=== PATIENT | male | born 1960 | race African-American/Black ===

== ENCOUNTER 2025-02-25 12:23 | Emergency (ER) | payer MEDICARE ==
[~2025-02-25] VITALS: Ht 180.3 cm; Wt 82.0 kg
[2025-02-25 12:29] VITALS: O2SAT 99
[2025-02-25] MEDS ORDERED: AMOX-494 MT (13:45)
[2025-02-25 14:00] VITALS: BP 130/71; PULSE 67; RESP 18; TEMP 36.7; O2SAT 100
== END 2025-02-25 14:01 | disposition home or self-care (01) ==
LOC: ER 12:23
DX: H66.92 Otitis media, unspecified, left ear (principal); I12.0 Hypertensive chronic kidney disease with stage 5 chronic kidney disease or end stage renal disease; E11.22 Type 2 diabetes mellitus with diabetic chronic kidney disease; N18.6 End stage renal disease; Z98.890 Other specified postprocedural states
CPT/HCPCS: 99283